=== PATIENT | male | born 2005 | race Caucasian/White ===

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

== ENCOUNTER 2023-08-01 12:55 | Emergency (ER) | payer OTHER, MEDICAID, SELFPAY ==
[2023-08-01 12:56] VITALS: BP 132/83; PULSE 77; RESP 18; TEMP 36.4; O2SAT 98
--- NOTE | 2023-08-01 14:20 | ED.GENADULT ---
HPI - General Adult General Chief complaint: Upper Respiratory Infection Stated complaint: sore throa/headache/congestion Source: patient Mode of arrival: ambulatory Limitations: no limitations History of Present Illness HPI narrative: PATIENT PRESENTS FOR EVALUATION OF SICK SYMPTOMS FOR LAST 3 DAYS. SYMPTOMS INCLUDE SINUS CONGESTION, SORE THROAT, HEADACHES, NAUSEA AND DIARRHEA.. NO FEVER, CHILLS, COUGH OR SOB. THREE OF HIS COWORKERS CURRENTLY HAVE COVID. HE IS NOT TAKING ANY MEDICATION TO ASSIST WITH THE SYMPTOMS. HIS SISTER IS BEING EVALUATED HERE FOR SIMILAR SYMPTOMS. Related Data Allergies Allergy/AdvReac Type Severity Reaction Status Date / Time No Known Allergies Allergy Verified 08/01/23 13:10 Review of Systems Review of Systems: CONSTITUTIONAL: DENIES FEVER, CHILLS, OR SWEATS. EYES: DENIES VISUAL CHANGES, REDNESS, OR DISCHARGE. ENT: DENIES RHINORRHEA, CONGESTION, SORE THROAT, OR OTALGIA. CARDIOVASCULAR: DENIES CHEST PAIN, PALPITATIONS, OR EDEMA. RESPIRATORY: DENIES COUGH OR DYSPNEA. GASTROINTESTINAL: REPORTS NAUSEA AND DIARRHEA. DENIES ABDOMINAL PAIN AND VOMITING. GENITOURINARY: DENIES DYSURIA OR HEMATURIA. SKIN: DENIES RASH OR ITCHING. MUSCULOSKELETAL: DENIES BACK PAIN, JOINT PAIN, OR MYALGIA. NEUROLOGIC: REPORTS HEADACHE. DENIES NUMBNESS, DIZZINESS, OR WEAKNESS. PSYCHIATRIC: DENIES ANXIETY OR DEPRESSION. PMFSH Past Medical History Medical History No pertinent past medical history Surgical History Surgical History No pertinent past surgical history Family History Family History Mother Family history non-contributory Social History Social History Smoking status: Never smoker Substance use: current Substance use type: marijuana Living arrangements: with family Gender identity (if verbalized by the patient): Male Spiritual care concerns: No Exam Narrative: GENERAL: WELL-APPEARING, WELL-NOURISHED, AND IN NO ACUTE DISTRESS. HEAD: NORMOCEPHALIC, ATRAUMATIC. EYES: PERRLA AND EOMI. ENT: NARES CLEAR, NO RHINORRHEA OR EPISTAXIS. MUCOUS MEMBRANES MOIST. OROPHARYNX WITHOUT TONSILLAR HYPERTROPHY EXUDATE OR OTHER LESIONS. BILATERAL TYMPANIC MEMBRANES ARE ERYTHEMATOUS AND BULGING WITH THICK YELLOW FLUID BEHIND TM'S NECK: SUPPLE. NO ADENOPATHY OR MASSES. NO CAROTID BRUITS OR JVD CHEST: CLEAR TO AUSCULTATION. NO RESPIRATORY DISTRESS. NO WHEEZES RALES OR RHONCHI HEART: REGULAR RATE AND RHYTHM. NO MURMUR HEARD. NORMAL PERIPHERAL PULSES. ABDOMEN: SOFT, NONTENDER, NONDISTENDED, NORMAL ACTIVE BOWEL SOUNDS. EXTREMITIES: NORMAL RANGE OF MOTION. NO EDEMA. SKIN: WARM, DRY, NO RASH. NEURO: NO FOCAL DEFICITS. ALERT AND ORIENTED X3. PSYCH: NORMAL MOOD AND AFFECT. Course Course Emergency Course: THIS IS A 17-YEAR-OLD MALE WHO PRESENTED FOR EVALUATION OF SICK SYMPTOMS AFTER RECENT COVID EXPOSURE. COVID, STREP AND INFLUENZA HERE WERE NEGATIVE. HE HAS EVIDENCE OF OTITIS MEDIA ON EXAM. WILL DISCHARGE WITH AUGMENTIN. INCREASE HYDRATION. [id number] AGENTS FOR SYMPTOM MANAGEMENT. FOLLOW UP WITH PRIMARY PROVIDER. GO TO THE EMERGENCY DEPARTMENT FOR WORSENING SYMPTOMS. PATIENT IN AGREEMENT WITH PLAN OF CARE. Level of Care: Express Care Visit Vital Signs Vital signs: Vital Signs Temperature 36.4 C 08/01/23 12:56 Pulse Rate 77 08/01/23 12:56 Respiratory Rate 18 08/01/23 12:56 Blood Pressure 132/83 08/01/23 12:56 Pulse Oximetry 98 08/01/23 12:56 Oxygen Delivery Room Air 08/01/23 12:56 Temperature 36.4 C 08/01/23 12:56 Pulse Rate 77 08/01/23 12:56 Respiratory Rate 18 08/01/23 12:56 Blood Pressure 132/83 08/01/23 12:56 Pulse Oximetry 98 08/01/23 12:56 Oxygen Delivery Room Air 08/01/23 12:56 Medical Decis
== END 2023-08-01 14:43 | disposition home or self-care (01) ==
PROVIDERS: Emergency Provider Nurse Practitioner
DX: H66.93 Otitis media, unspecified, bilateral (principal); Z20.822 Contact with and (suspected) exposure to COVID-19
CPT/HCPCS: 87081; 87426; 87804; 87880; 99213; C9803; G0463

== ENCOUNTER 2023-12-02 14:39 | Emergency (ER) | payer OTHER, MEDICAID, SELFPAY ==
[2023-12-02 14:57] VITALS: BP 131/81; PULSE 95; RESP 18; TEMP 36.6; O2SAT 99
[2023-12-02 15:09] VITALS: BP 131/81; PULSE 95; RESP 18; TEMP 36.6; O2SAT 99
--- NOTE | 2023-12-02 15:17 | ED.GENADULT ---
HPI - General Adult General Chief complaint: Upper Respiratory Infection Stated complaint: exposed to covid Source: patient, RN notes reviewed and old records reviewed Mode of arrival: ambulatory Limitations: no limitations History of Present Illness HPI narrative: 18-year-old male presents to Express Care with complaint cough, congestion, chills, fatigue, myalgias that started last p.m. Patient states for family members have COVID. Patient not taking any medications [id number]. Patient denies weakness, dizziness, chest pain, shortness of breathe. MD complaint: cough, congestion Onset (ago): day(s) (1) Related Data Allergies Allergy/AdvReac Type Severity Reaction Status Date / Time No Known Allergies Allergy Verified 12/02/23 14:52 Review of Systems Constitutional: Constitutional: Reports no additional constitutional complaints, Reports body ache(s), Denies chills, Reports fatigue, Denies fever(s) and Reports headache(s) Eyes: Eyes: Reports no additional eye complaints and Denies blurry vision ENT: Reports system reviewed and no additional complaints, except as documented, Denies vertigo, Denies dizziness, Denies ear discharge, Denies otalgia, Denies facial pain, Denies headache(s), Reports nasal congestion, Reports nasal discharge, Denies sinus pain, Reports sinus pressure and Denies sore throat Cardiovascular: Cardiovascular: Reports no additional cardiovascular complaints, Denies chest pain, Denies chest pain at rest, Denies rapid heart rate and Denies dyspnea Respiratory: Respiratory: Reports no additional respiratory complaints, Denies chest congestion, Reports cough, Denies pain on inspiration, Denies pain with cough and Denies dyspnea Gastrointestinal: Gastrointestinal: Denies abdominal pain, Denies diarrhea, Denies nausea and Denies vomiting Integumentary/Breasts: Skin/Breast: Denies rash Neurologic: Reports system reviewed and no additional complaints, except as documented, Denies vertigo, Denies dizziness and Denies headache(s) Endocrine: Endocrine: Denies fatigue PMFSH Past Medical History Medical History No pertinent past medical history Surgical History Surgical History No pertinent past surgical history Family History Family History Mother Family history non-contributory Social History Social History Smoking status: Never smoker Substance use: current Substance use type: marijuana Living arrangements: with family Gender identity (if verbalized by the patient): Male Spiritual care concerns: No Comments At the time of my signature, I reviewed and agree with the nursing past medical, surgical, social, and family history. There is no relevant family history pertinent to the patient complaint. Exam Const: General: cooperative, healthy appearing, no acute distress and well nourished Nutritional Appearance: well nourished Orientation/consciousness: patient oriented x3 Limitations: no limitations HENMT: Head: normal to inspection and normocephalic Ears: external ears normal, TM's normal bilaterally, mastoids normal and Abnormal EAC present Face/Nose/Sinus: normal facial exam Face and sinus: normal facial exam Mouth: Yes Normal oral and palatal mucosa present, Yes oropharynx normal and Yes moist mucous membranes Throat: tonsils normal, uvula midline, posterior oropharynx abnormal erythema and no uvular edema Eyes: General: appearance normal, both eyes and all related structures Sclera: sclerae normal Pupils: Equal, round and reactive pupils present Resp: Effort & Inspection: normal respiratory effort, able to speak in complete sentences, no audible wheezes, no cough, no respiratory distress and no retractions Auscultation: clear to auscultation bilaterally,
== END 2023-12-02 15:26 | disposition home or self-care (01) ==
PROVIDERS: Emergency Provider Registered Nurse
DX: B34.9 Viral infection, unspecified (principal); Z20.822 Contact with and (suspected) exposure to COVID-19; F12.90 Cannabis use, unspecified, uncomplicated
CPT/HCPCS: 87426; 87804; 99213; G0463

== ENCOUNTER 2025-08-17 12:51 | Emergency (ER) | payer MEDICAID, SELFPAY ==
--- NOTE | 2025-08-17 12:53 | ED_ITS ---
HPI - Dental/Oral General Chief complaint: Dental/Oral Stated complaint: tooth pain/migraine Time Seen by Provider: 08/17/25 12:52 Source: patient Mode of arrival: ambulatory Limitations: no limitations History of Present Illness HPI Narrative: Osmani is a 19-year-old male patient presenting to the clinic today with complaints of dental pain/headache x 3 days. He reports has been taking Tylenol and ibuprofen for the pain however he has not taken any medications today. States that the toothache is causing him to have a right-sided headache. The pain is sharp and dull in his tooth and sharp pain in his head. Currently rating his pain a 4/10. Related Data Allergies Allergy/AdvReac Type Severity Reaction Status Date / Time No Known Allergies Allergy Verified 08/17/25 12:59 Review of Systems Review of Systems: Pertinent positives per HPI. Patient denies any fever, chills, rash, headache, visual changes, dizziness, cough, runny nose, sore throat, shortness of breath, chest pain, palpitations, nausea, vomiting, diarrhea, constipation, abdominal pain, or any urinary issues. PMFSH Past Medical History Medical History No pertinent past medical history Surgical History Surgical History No pertinent past surgical history Family History Family History Mother Family history non-contributory Social History Social History Smoking status: Never smoker Substance use: current Substance use type: marijuana Living arrangements: with family Gender identity (if verbalized by the patient): Male Spiritual care concerns: No Comments At the time of my signature, I reviewed and agree with the nursing past medical, surgical, social, and family history. There is no relevant family history pertinent to the patient complaint. Exam Narrative: General: Well-developed, well nourished, in no apparent distress Head: Normocephalic, atraumatic Eyes: Pupils equally round and reactive to light bilaterally, EOM intact, sclera and conjunctive clear, no discharge, lids normal Ears: TMs intact and clear, ear canals clear, no drainage, grossly hearing normal. Nose: Nares patent, no discharge, no inflammation, no sinus tenderness. Mouth: Oropharynx without lesions or masses, good dentition, MMM. Tongue midline, even rise and fall of uvula,fractured tooth #1 with pain to palpation without visible or palpable abscess. Neck: Supple, trachea midline, no enlargement of anterior or posterior cervical nodes, no thyroid masses or goiter palpable. Cardio: Regular rate and rhythm, s1 and s2 normal, no murmur appreciated. Resp: Clear to auscultation bilaterally anteriorly and posteriorly, no rhonchi, rales, wheezing or rubs Musculoskeletal: No deformity, non-tender to palpation, grossly normal range of motion, muscle strength strong and equal, peripheral pulse strong, no edema, no cyanosis, normal gait and station Neuro: Alert and oriented x4 with normal speech, no focal deficits, cranial nerves I through XII intact, muscle strength 5 out of 5, sensation intact bilaterally, negative Romberg test Course Course Emergency Course: Portions of this record may have been created with voice recognition software. Level of Care: Express Care Visit Vital Signs Vital signs: Vital Signs Temperature 36.1 C L 08/17/25 12:55 Pulse Rate 68 08/17/25 12:55 Respiratory Rate 18 08/17/25 12:55 Blood Pressure 144/84 H 08/17/25 12:55 Pulse Oximetry 100 08/17/25 12:55 Oxygen Delivery Room Air 08/17/25 12:55 Temperature 36.1 C L 08/17/25 12:55 Pulse Rate 68 08/17/25 12:55 Respiratory Rate 18 08/17/25 12:55 Blood Pressure 144/84 H 08/17/25 12:55 Pulse Oximetry 100 08/17/25 12:55 Oxygen Delivery Room Air 08/17/25 12:55 Vital signs reviewed MDM - Dental/Oral MDM Narrative Medical decision making narrative: At the time of visit patient is resting comfortably on the exam table. Patient appears to be nontoxic. complaints of dental pain/headache x 3 days. He reports has been taking Tylenol and ibuprofen for the pain however he has not taken any medications today. States that the toothache is causing him to have a right-sided headache. The pain is sharp and dull in his tooth and sharp pain in his head. Currently rating his pain a 4/10. On exam patient has a normal neuro exam. Has a fractured tooth #1 with pain to palpation without visible or palpable abscess. Toradol 60 mg IM offered and patient accepts. Medications: Toradol 60 mg IM given in the clinic today Plan: I suspect patient has dental pain/headache. Toradol 60 mg IM given in the clinic today. Will send in prescription for amoxicillin to cover for a dental infection. Patient has fractured 1 tooth with localized pain. Follow-up with dentist as soon as possible. Supportive measures were discussed with the patient and they voiced understanding discharge instructions and agrees to treatment plan. Return precautions reviewed Differential Diagnosis Differential diagnosis: Likely gingival abscess, dental caries, toothache, dental abscess, fracture of tooth, aphthous ulcer and other (Migraine headache) Discharge Plan Discharge Clinical Impression: Pain, dental Patient Disposition: Home Condition: Stable Instructions: Antibiotic Form, Toothache (ED) Additional Instructions: Toradol 60 mg IM given in the clinic today Take medications as prescribed-amoxicillin Increase fluids and stay well hydrated May take Tylenol/Motrin as per bottle directions as needed for pain or fever May apply Orajel to the affected area to help alleviate pain May apply warm or cool compress to the affected area to help alleviate pain Follow-up with your dentist as soon as possible Patient Language: Macedonian Prescriptions: New amoxicillin 875 mg tablet 875 mg PO Q12H 10 Days Qty: 20 0RF Follow-up/Referrals: UNKNOWN,DOCTOR [Non-Staff] Stand Alone Forms: Work/School Release IP Time of Disposition: 13:03 Quality NIHSS Nursing Documentation ED NIHSS nursing documentation: reviewed/agree
--- OUTSIDE RECORDS SUMMARY | 2025-08-17 12:54 | XMS_ITS | Clinical Summary ---
Author Organization [facility] Address [address] [place] [address] Care Team Providers Care Check Airman Name Role Phone Unavailable Primary Care Provider Unavailabl e Source Comments [facility],non-owned Affiliates and Associated Physician Practices is amultiple site organization consisting of ambulatory clinics and hospital sitesin [place], [place], [place] and [place]. This disclosure is being madepursuant to the Care Everywhere program and may not contain all information available regarding this patient. Last updated 18.[facility] enVerid Allergies No known active allergies Medications * Be aware that medications may not be up to date on this document. Alwaysverify current medications with the patient. 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 Concussion with no loss of consciousness 019 Social History Tobacco Use Types Packs/Day Years Used Date Smoking Tobacco: Passive Smo ke Exposure - Never Smoker Smokeless Tobacco: Never Sex and Gender Information Value Date Recorded Sex Assigned at Not on file Legal Sex Male 11:47 AM [employer]LET[employer] Gender Identity Not on file Sexual Orientation Not on file Last Filed Vital Signs Vital Sign Reading Time Taken Comments Blood Pressure 126/101 06/27/2021 9:30 AM CDT Pulse 90 06/27/2021 9:45 AM CDT Temperature 36 C (96.8 F) 06/27/2021 9:20 AM CDT Respiratory Rate 16 06/27/2021 9:45 AM CDT Oxygen Saturation 98% 06/27/2021 9:45 AM CDT Inhaled Oxygen Concentration - - Weight 125.5 kg (276 lb 10.8 oz) 06/27/2021 7:52 AM CDT Height 176.2 cm (5' 9.37) 06/27/2021 7:52 AM CD T Body Mass Index 40.42 06/27/2021 7:52 AM CDT Plan of Treatment Health Maintenance Due Date Last Done Comments HIV SCREENING 2018 HPV VACCINE (1 - Male 3-dose series) 2018 MENINGOCOCCAL (Group B) VACC INE SHARED DECISION-MAKING (1 of 2 - Standard) 2019 HEPATITIS C SCREENING 09/13/2021 DTAP/TDAP/TD VACCINES (1 - Tdap) 2022 HEPATITIS B VACCINE (1 of 3 - 19+ 3-dose series) 2022 DEPRESSION SCREENING 11/22/2024 COVID-19 VACCINE (1 - 2023-2 5 season) 2025 INFLUENZA VACCINE (#1) 2025 ZOSTER VACCINE (1 of 2) 2053 HIB VACCINE Aged Out No longer eligi ble based on patient's age to complete this topic MENINGOCOCCAL GROUPS A/C/Y/W VACCINE Aged Out No longer eligible b ased on patient's age to complete this topic PNEUMOCOCCAL VACCINE Aged Out No long er eligible based on patient's age to complete this topic Insurance [facility]
[2025-08-17 12:55] VITALS: BP 144/84; PULSE 68; RESP 18; TEMP 36.1; O2SAT 100
--- OUTSIDE RECORDS SUMMARY | 2025-08-17 12:56 | XMS_ITS | Clinical Summary ---
Author Organization [facility] Address [address] [place] [address] Phone Care Team Providers Care Form Carpenter Name Role Phone Gagandeep Varela MD Unavailable Trudy Lowery DPM Unavailable [phone] Provider, None Primary Care Provider Unavailabl e Allergies No known active allergies Medications dicyclomine (BENTYL) 10 MG Capsule Take 1 Capsule by mouth 3 times daily. 90 Capsule 03/12/2023 Active omeprazole (PriLOSEC) 40 MG CAPSULE DELAYED RELEASE Take 1 Capsule by mouth daily. 90 Capsule 3 03/12/2023 Active HYDROcodone-[place]na taminophen (NORCO) 5-325 MG TabletIndicatio ns:Contusion of left hip and thigh, initial encounter,Fall down stairs, initial encounter Take 1 Tablet by mouth every 6 hours as needed for Moderate or more severe pain. 12 Tablet 06/23/2024 Active Active Problems Problem Noted Date Diagnosed Date Gastroesophageal reflux disease with esophagitis 01/04/2023 Irritable bowel syndrome wit h both constipation and diarrhea 01/04/2023 Anxiety and depression 07/25/2022 Overview (09/02/2022): Last Assessment & Plan: Condition: stable Never seen mental health provider. Condition managed by PCP Medications: Member stable off of medications If taking medications, do not stop treatment without consulting healthcare provider. If symptoms worsen or do not improve/stabilize, notify health care provider right away. If thoughts of harming self or others notify health care provider immediately &/or seek urgent/emergent care including calling Suicide Hotline ( ) or 911. Follow up in three months with PCP Obesity, morbid 07/25/2022 Overview (09/02/2022): Last Assessment & Plan: Condition: stable Co-morbidities: Hypertension Follow up in: three months Hematochezia 06/27/2021 Resolved Problems Problem Noted Date Diagnosed Date Resolved Date Hypertension, essential 11/10/202101/21 Overview (09/02/2022): Last Assessment & Plan: Condition: stable Discussed target blood pressure. Instructed to keep a bp diary, make an appt with PCP/specialist. Lifestyle modification advised: DASH diet, reduce stress/anxiety, discussed health weight management, activity as tolerated or advised from PCP, try to avoid alcohol and nicotine. Follow up in: three months Concussion with no loss of consciousness 09/22/2019 09/02/2022 Immunizations Immunization Administration Dates Next Due DTAP VACCINE 09/21/2007, 4,05/09/2004,01/01 Hepatitis A, Pediatric, Unsp ecified Formulation 06/14/2009,09/21/2007 Hepatitis B Vaccine, Pediatric/adolescent 07/30/2004,2003,2003 Hib Vaccine,unspecified Formulation 07/30/2004,0 05/09/2004,01/01/2004 Human Papillomavirus (HPV) 9 -valent Vaccine 06/12/2016,01/02/2016 Human Papillomavirus Vaccine (HPV), quadrivalent 06/20/2015 Inactivated Polio Vaccine 09/21/2007,05/09/2004, 01/01/2004 Influenza Vaccine, Quadrivalent, PF 08/22,01/15/2021,10/02/2019,08/17,11/18/2017 MMR Vaccine 09/21/2007,05/16/2005 Meningococcal Group B OMV 05/15/2021,01/15/2021 Meningococcal MCV4, Unspecif ied Formulation 01/15/2021 Meningococcal MCV4O 06/20/2015 Meningococcal Vaccine 01/15/2021 Pneumococcal Vaccine Peds - 7 Valent 09/21/2007 TDAP Vaccine 06/20/2015 Varicella Vaccine Live 09/21/2007,10/21/2004 Family History Medical History Relation Name Comments No Known Problems Half-Brother No Known Problems Half-Sister 1 No Known Problems Half-Sister 2 No Known Problems Half-Sister 3 No Known Problems Half-Sister 4 Arthritis Maternal Grandfather Diabetes Maternal Grandfather Hypertension Maternal Grandfather No Known Problems Maternal Grandmother Diabetes Mother Hypertension Mother Relation Name Status Comments Half-Brother Alive Half-Sister 1 Alive Half-Sister 2 Alive Half-Sister 3 Alive Father Half-Sister 4 Alive Father Maternal Grandfather Alive Maternal Grandmother Mother Alive Social History Tobacco Use Types Packs/Day Years Used Date Smoking Tobacco: Never Passive Smoke Exposure: Yes Smokeless Tobacco: Never Tobacco Cessation:Counseling Given: Not Answered Alcohol Use Standard Drinks/Week Comments No 0 (1 standard drink = 0.6 oz pur e alcohol) PHQ-2 Answer Date Recorded Total Score - Questions 1-9 20 08/22 Sexually Active Control Partners Comments Not Currently Sex and Gender Information Value Date Recorded Sex Assigned at Not on file Legal Sex Male 10:04 PM CDT Gender Identity Not on file Sexual Orientation Not on file Last Filed Vital Signs Vital Sign Reading Time Taken Comments Blood Pressure 150/76 04/03/2025 5:55 PM CDT Pulse 98 04/03/2025 5:55 PM CDT Temperature 37.6 C (99.6 F) 04/03/2025 4:03 PM CDT Respiratory Rate 18 04/03/2025 5:55 PM CDT Oxygen Saturation 100% 04/03/2025 5:55 PM CDT Inhaled Oxygen Concentration - - Weight 111.1 kg (245 lb) 04/03/2025 4:03 PM CDT Height 182.9 cm (6') 04/03/2025 4:03 PM CDT Body Mass Index 33.23 04/03/2025 4:03 PM CDT Plan of Treatment Health Maintenance Due Date Last Done Comments Hepatitis C Virus (HCV) Screening 2005 DTaP/Tdap/Td Immunization (6 - Td or Tdap) 06/20/2025 06/20/2015, 09/21/2007, 07/30/2004, Additional history exists Influenza Immunization (#1) 07/23/202508/22, 01/15/2021, 10/02/2019, Additional history exists SARS-COV-2 Immunization ( - season) 2025 07/31/2021, 07/10/2021 Respiratory Syncytial Virus (RSV) Immunization (Adult) (1 - 1-dose 75+ series) 2078 Hepatitis B Immunization Completed 004, 2003, 2003 Measles Mumps Rubella (MMR) Immunization Discontinued 09/21/2007, 05/16/2005 Pneumococcal Immunization Combined Aged Out 09/21/2007 No longer eligible based on patient's age to complete this topic Polio (IPV) Immunization Discontinued 007, 05/09/2004, 01/01/2004 Varicella Immunization Discontinued 09/21/2007, 2003 Hepatitis A Immunization Discontinued 06/14/2009, 08/24 Human Papillomavirus (HPV) Immunization Completed 06/12/2016, 01/02/2016, 06/20/2015 Meningococcal Immunization (ACWY) Completed 01/15/2021, 01/15/2021, 06/20/2015 Meningococcal B Immunization Completed 05/15/2021, 01/15/2021 Rotavirus Immunization Aged Out No lo nger eligible based on patient's age to complete this topic Care Teams Form Carpenter Relationship Specialty Start Date End Date Provider, None [place] PCP - General 06/23/24 Gagandeep Varela MD [address] [address] Consulting Physician Colon and Rectal Surgery 03/02/23 Trudy Lowery DPM [address] [address] Consulting Physician Podiatry 01/26/23
[2025-08-17] MEDS: KETOROLAC (*BKC) 60 MG/2 ML VIAL IM (13:07)
== END 2025-08-17 13:27 | disposition home or self-care (01) ==
PROVIDERS: Emergency Provider Nurse Practitioner Family
DX: K08.89 Other specified disorders of teeth and supporting structures (principal)
CPT/HCPCS: 96372; 99213; G0463; J1885

== ENCOUNTER 2025-11-09 11:59 | Emergency (ER) | payer OTHER, SELFPAY ==
--- OUTSIDE RECORDS SUMMARY | 2025-11-09 12:04 | XMS_ITS | Clinical Summary ---
Author Organization [facility] Address [address] [place] [address] Phone Care Team Providers Care Deck Mechanic Name Role Phone Gagandeep Varela MD Unavailable Trudy Lowery DPM Unavailable [phone] Provider, None Primary Care Provider Unavailabl e [...] with no loss of consciousness 09/22/2019 09/02/2022 Encounters Date Type Department Care Team Description 10/19/2025 3:30 PM BRIDGE DESIGN ENGINEER [facility] [address] [id number] Chapito Martínez Follow-up Discharge Disposition: Discharged to home or Selfcare 10/19/2025 Travel 10/12/2025 Telephone [facility] [address] [phone] Chapito Martínez Patient Outreach 10/12/2025 Telephone [facility] [address] [phone] Hollie Gutierrez Patient Outreach 10/05/2025 4:46 PM BRIDGE DESIGN ENGINEER - 10/05/2025 6:09 PM BRIDGE DESIGN ENGINEER Emergency [facility] Emergency [address] [facility] [place] [address] Dwayne Albright, PAC Sprain of right thumb, initial encounter Discharge Disposition: Discharged to home or Selfcare 10/05/2025 Travel from Last 3 Months Immunizations Immunization Administration Dates Next Due DTAP [...] Sign Reading Time Taken Comments Blood Pressure 149/99 10/05/2025 4:48 PM BRIDGE DESIGN ENGINEER Pulse 78 10/05/2025 4:48 PM BRIDGE DESIGN ENGINEER Temperature 37.1 C (98.7 F) 10/05/2025 4:48 PM BRIDGE DESIGN ENGINEER Respiratory Rate 18 10/05/2025 4:48 PM BRIDGE DESIGN ENGINEER Oxygen Saturation 99% 10/05/2025 4:48 PM BRIDGE DESIGN ENGINEER Inhaled Oxygen Concentration - - Weight 107.4 kg (236 lb 12.4 oz) 10/05/2025 4:48 PM BRIDGE DESIGN ENGINEER Height 182.9 cm (6') 10/05/2025 4:48 PM BRIDGE DESIGN ENGINEER Body Mass Index 32.11 10/05/2025 4:48 PM BRIDGE DESIGN ENGINEER Plan of Treatment Health Maintenance Due Date Last Done Comments Hepatitis C Virus (HCV) Screening 2003 DTaP/Tdap/Td Immunization (6 - Td or Tdap) 06/20/2025 06/20/2015, 09/21/2007, 07/30/2004, Additional history exists Influenza Immunization (#1) 07/23/202508/22, 01/15/2021, 10/02/2019, Additional history exists SARS-COV-2 Immunization ( season) 2025 07/31/2021, 07/10/2021 Respiratory Syncytial Virus (RSV) Immunization (Adult) (1 - 1-dose 75+ series) 2078 Hepatitis B Immunization Completed 004, 2003, 2003 Measles Mumps Rubella (MMR) Immunization Discontinued 09/21/2007, 05/16/2005 Pneumococcal Immunization Combined Aged Out 09/21/2007 No longer eligible based on patient's age to complete this topic Polio (IPV) Immunization Discontinued 007, 05/09/2004, 01/01/2004 Varicella Immunization Completed 09/21/2007, 2003 Hepatitis A Immunization Discontinued 06/14/2009, 08/24 Human Papillomavirus (HPV) Immunization Completed 06/12/2016, 01/02/2016, 06/20/2015 Meningococcal Immunization (ACWY) Completed 01/15/2021, 01/15/2021, 06/20/2015 Meningococcal B Immunization Completed 05/15/2021, 01/15/2021 Rotavirus Immunization Aged Out No lo nger eligible based on patient's age to complete this topic Procedures Procedure Name Priority Date/Time Associated Diagnosis Comments XR HAND 2 VIEWS RIGHT STAT 10/05/2025 5:48 PM BRIDGE DESIGN ENGINEER from Last 3 Months Results * XR HAND 2 VIEWS RIGHT (10/05/2025 5:48 PM BRIDGE DESIGN ENGINEER) Anatomical Region Laterality Modality UPPER EXTREMITY, hand Right Digital Ra diography 10/05/2025 5:48 PM BRIDGE DESIGN ENGINEER Impressions 10/05/2025 7:07 PM BRIDGE DESIGN ENGINEER IMPRESSION: No acute osseous findings. Narrative 10/05/2025 7:07 PM BRIDGE DESIGN ENGINEER DICTATING PHYSICIAN: Bassem Wilson M.D., [facility] EXAM: XR HAND 2 VIEWS RIGHT 10/05/2025 5:48 PM Patient : 2005 Age: 20 years Gender: Male Number of images: 2 INDICATION: right thumb pain after a hyperextension injury today. COMPARISON: 12/14/2021 FINDINGS: The bones appear to be in anatomic alignment. No fracture is identified. No dislocation is seen. Procedure Note Bassem Wiseman MD - 10/05/2025 DICTATING PHYSICIAN: Bas[facility] Wilson [facility]D., [facility] EXAM: XR HAND 2 VIEWS RIGHT 10/05/2025 5:48 PM Patient : 2005 Age: 20 years Gender: Male Number of images: 2 INDICATION: right thumb pain after a hyperextension injury today. COMPARISON: 12/14/2021 FINDINGS: The bones appear to be in anatomic alignment. No fracture is identified. No dislocation is seen. IMPRESSION: No acute osseous findings. Dwayne Buckleyn PAC IMG DIAGNOSTIC ORDER CINTHIA Final Result from Last 3 Months Insurance MEDICAID [facility] Care Teams Deck Mechanic Relationship Specialty Start Date End Date Provider, None [place] PCP - General 06/23/24 Gagandeep Varela MD [address] [address] Consulting Physician Colon and Rectal Surgery 03/02/23 Trudy Lowery DPM #[address] [address] Consulting Physician Podiatry 01/26/23
[2025-11-09 12:13] VITALS: BP 131/74; PULSE 81; RESP 16; TEMP 36.9; O2SAT 99
--- NOTE | 2025-11-09 12:23 | ED_ITS ---
HPI - Extremity Injury (Upper) General Chief Complaint: Extremity Injury, Upper Stated Complaint: Left Hand Swelling/Numbness Time Seen by Provider: 11/09/25 12:25 Source: patient, RN notes reviewed and old records reviewed Mode of arrival: ambulatory Limitations: no limitations History of Present Illness HPI narrative: 20-year-old male presents to the [facility] with concerns of bilateral hand swelling last night in this morning. Reports also some numbness. Reports a burning itching feeling as well. Denies any trauma. No redness or swelling noted on exam. Has full range of motion. No snuffbox tenderness. Denies any new creams ointments lotions detergents. Patient requesting allergy testing. Onset (ago): day(s) (1) Related Data Home Medications ?Medication ?Instructions ?Recorded ?Confirmed ?Last Taken ?Type No Home Medications 11/09/25 11/09/25 U nknown History Allergies Allergy/AdvReac Type Severity Reaction Status Date / Time No Known Allergies Allergy Verified 11/09/25 12:17 Review of Systems Review of Systems: All systems reviewed & are unremarkable except as noted in HPI and below Constitutional: Constitutional: Reports no additional constitutional complaints ENT: Reports system reviewed and no additional complaints, except as documented Cardiovascular: Cardiovascular: Reports no additional cardiovascular complaints, Denies chest pain and Denies dyspnea Respiratory: Respiratory: Reports no additional respiratory complaints, Denies chest congestion, Denies cough and Denies dyspnea Musculoskeletal: Musculoskeletal: Reports as per HPI Integumentary/Breasts: Skin/Breast: Reports system reviewed and no additional complaints, except as docu PMFSH Past Medical History Medical History No pertinent past medical history Surgical History Surgical History No pertinent past surgical history Family History Family History Mother Family history non-contributory Social History Social History Smoking status: Never smoker Substance use: current Substance use type: marijuana Living arrangements: with family Gender identity (if verbalized by the patient): Male Spiritual care concerns: No Comments At the time of my signature, I reviewed and agree with the nursing past medical, surgical, social, and family history. There is no relevant family history pertinent to the patient complaint. Exam Const: General: cooperative, healthy appearing, comfortable, no acute distress, well developed, alert and well nourished Nutritional Appearance: well nourished Orientation/consciousness: patient oriented x3 Limitations: no limitations HENMT: Head: normal to inspection Eyes: General: appearance normal, both eyes and all related structures Alignment and Position: alignment normal Neck: Neck: normal visual inspection, full ROM, no lymphadenopathy and no meningeal signs Chest: Chest palpation & inspection: normal inspection of the chest Resp: Effort & Inspection: normal respiratory effort and able to speak in complete sentences Auscultation: clear to auscultation bilaterally, no crackles, no rales, no rhonchi and no wheezes Cardio: Rate: regular rate Back/Spine/Pelvis: Back: No back tenderness Cervical Spine: normal cervical lordosis, cervical ROM normal, No cervical muscular tenderness and No Cervical spine tenderness Skin: General skin exam: normal color and no rashes or lesions noted Neuro: General: patient oriented x3, gait normal, moves all extremities and no meningeal signs Cognition (Neuro): normal cognition Speech: normal speech Gait exam (Neuro): Normal gait present Extrem: General: normal to inspection, full ROM, capillary refill normal and normal gait Right upper extremity: wrist normal vascular exam, Tinel's negative and Phalen's negative and Extremity exam: right hand normal to inspection, normal capillary refill, neuromotor exam normal and normal ROM of fingers Left upper extremity: normal to inspection, normal capillary refill, wrist radial pulse present, Tinel's negative and Phalen's negative and hand normal to inspection, normal capillary refill, neuromotor exam normal, vascular exam radial pulse present and normal capillary refill and normal ROM of fingers Psych: Appearance: grossly normal and well kempt Mental Status: mental status grossly normal Speech and movement: Normal speech and movement present and Clear speech present Affect: normal affect Attitude: cooperative Course Course Level of Care: Express Care Visit Vital Signs Vital signs: Vital Signs Temperature 98.4 F 11/09/25 12:13 Pulse Rate 81 11/09/25 12:13 Respiratory Rate 16 11/09/25 12:13 Blood Pressure 131/74 11/09/25 12:13 Pulse Oximetry 99 11/09/25 12:13 Oxygen Delivery Room Air 11/09/25 12:13 Temperature 98.4 F 11/09/25 12:13 Pulse Rate 81 11/09/25 12:13 Respiratory Rate 16 11/09/25 12:13 Blood Pressure 131/74 11/09/25 12:13 Pulse Oximetry 99 11/09/25 12:13 Oxygen Delivery Room Air 11/09/25 12:13 reviewed MDM MDM Narrative Medical decision making narrative: patient sitting in exam room. Patient is nontoxic, vitals stable patient with hand swelling, itching, numbed, burning feeling denies injury. No swelling, redness noted on exam. Negative Tinel's, negative Phalen's patient is requesting allergy testing, explained to patient that that is not a service that we offer, he would need to follow-up with primary care provider. Patient without symptoms during exam. Patient is appropriate for outpatient treatment with close follow-up Discharge instructions reviewed with patient, as well as provided in writing per nursing staff. The instructions also include specific and strict return/GO TO THE ER as well as f/u information. All questions have been answered, and the patient deny any further questions with discharge and discharge plan. Some parts of this dictation were generated by voice recognition software and may contain typographical and/or grammatical inaccuracies. Differential Diagnosis Differential Diagnosis: Differential diagnostic considerations for upper extremity injury include sprain/strain of wrist, fracture of wrist, finger sprain, arthritic changes, allergic reaction, dermatitis, tendon injury, carpal tunnel syndrome.? Discharge Plan Discharge Clinical Impression: Bilateral hand swelling Patient Disposition: Home Condition: Stable Instructions: Antibiotic Form, Arthralgia (ED) Additional Instructions: most important part of the care is following up with primary care provider. For worsening symptoms go directly to the ER Patient Language: [place]de[place] Prescriptions: No Action No Home Medications Follow-up/Referrals: PHYSICIAN,RECREATION AIDE [Primary Care Provider, Internal Medicine] Stand Alone Forms: Work/School Release IP Time of Disposition: 12:37
== END 2025-11-09 12:43 | disposition home or self-care (01) ==
PROVIDERS: Emergency Provider Nurse Practitioner
DX: R22.33 Localized swelling, mass and lump, upper limb, bilateral (principal); F12.90 Cannabis use, unspecified, uncomplicated
CPT/HCPCS: 99212; G0463